=== PATIENT | female | born 1990 ===

== ENCOUNTER 2021-05-27 11:45 | Inpatient (IN) | payer OTHER ==
[~2021-05-27] VITALS: Ht 162.6 cm; Wt 63.0 kg
[2021-06-09] MEDS ORDERED: PRENATAL CAPLE1 EAC1 PO (08:13)
== END 2021-06-11 11:58 | disposition home or self-care (01) | DRG 807 ==
LOC: LDR 06-09 05:54 → OB/GYN 06-09 05:54 → SURH 06-10 11:45 → OB/GYN 06-11 11:58
PROVIDERS: ADMIT Obstetrics & Gynecology; ATTEND Obstetrics & Gynecology
PROC: 10E0XZZ Delivery of Products of Conception, External Approach (ICD-10-PCS; principal; 2021-06-09)
PROC: 4A1HXFZ Monitoring of Products of Conception, Cardiac Rhythm, External Approach (ICD-10-PCS; 2021-06-09)
DX: O99.824 Streptococcus B carrier state complicating childbirth (principal); Z37.0 Single live birth; O26.893 Other specified pregnancy related conditions, third trimester; Z67.11 Type A blood, Rh negative; Z3A.39 39 weeks gestation of pregnancy

== ENCOUNTER 2021-06-08 09:05 | Outpatient (CLI) | payer OTHER ==
[2021-06-09] MEDS ORDERED: PRENATAL CAPLE1 EAC1 PO (08:13)
== END 2021-06-08 09:35 | disposition home or self-care (01) ==
LOC: NST 09:05
PROVIDERS: ATTEND Obstetrics & Gynecology
DX: Z34.83 Encounter for supervision of other normal pregnancy, third trimester (principal)